=== PATIENT | male | born 1990 | race African-American/Black ===

== ENCOUNTER 2017-10-17 19:55 | Emergency (ER) | payer OTHER ==
[2017-10-17] MEDS ORDERED: traMADol HCl 50 MG TAB ONE (20:11)
== END 2017-10-17 20:22 | disposition home or self-care (01) ==
LOC: ERS 19:55
DX: M54.5 Low back pain (principal); W17.89XA Other fall from one level to another, initial encounter
CPT/HCPCS: 99283

== ENCOUNTER 2018-04-26 13:03 | Inpatient (IN) | payer OTHER ==
[~2018-04-26 13:03] MED LIST: ISOVUE-370 76%-LOCM 1 ML ONE
[2018-04-26 13:45] LABS: Hemoglobin 16.6 g/dL (14.0-18.0); Mean Corpuscular HGB CONC 34.1 g/dL (32.0-36.0); Mean Corpuscular Hemoglobin 28.3 pg (27.0-31.0); Mean Corpuscular Volume 83.1 fL (78.0-98.0); RBC Distribution Width 12.6 % (11.5-14.5); Red Blood Cell (RBC) Count 5.87 mill/uL (4.70-6.10); White Blood Cell (WBC) Count 9.4 thou/uL (4.8-10.8)
[2018-04-26 13:59] LABS: ALT (SGPT) 11 U/L (8-55); AST (SGOT) 16 U/L (5-34); Albumin 4.6 g/dL (3.5-5.0); Alkaline Phosphatase 50 U/L (40-150); Anion Gap 18 mmol/L (10-20); BUN (Urea Nitrogen) 13 mg/dL (8.9-20.6); Bilirubin, Total 2.1 mg/dL (0.2-1.2); Calc. Creatinine Clearance 0 mL/min (70-130); Calcium 9.3 mg/dL (7.8-10.44); Carbon Dioxide 19 mmol/L (22-29); Chloride 99 mmol/L (98-107); Estimated GFR-MDRD 64; Globulin 3.6 g/dL (2.4-3.5); Glucose 103 mg/dL (70-105); Potassium 4.6 mmol/L (3.5-5.1); Protein, Total 8.2 g/dL (6.0-8.3); Sodium 131 mmol/L (136-145)
[2018-04-26 13:59] LABS: Band 31 % (5-11); Large Platelets SLIGHT; Lymphocytes 20 % (21-51); MDiff Complete? YES; Mean Platelet Volume 13.1 fL (7.4-10.4); Metamyelocyte 2 % (0-0); Monocytes 10 % (0-10); Neutrophil 35 % (42-75); PLT Morphology Comment Appears Decreased; Platelet Count 64 thou/uL (130-400); RBC Morphology Normal; Reactive Lymphocytes 2 % (0-10); Vacuoles SLIGHT
[2018-04-26] MEDS ORDERED: Cefepime 2 GM in Sodium Chloride 0.9% 100 ML IVPB SCH (14:15)
[2018-04-26 15:03] LABS: Bilirubin Negative (Negative); Blood, Urine Negative (Negative); Clarity CLEAR (Clear); Glucose, Urine (Dipstick) Negative (Negative); Leukocyte Negative (Negative); Nitrite Negative (Negative); Protein, Urine (Dipstick) Trace mg/dL (Neg-Trace); Specific Gravity, Urine 1.021 (1.002-1.036); Urobilinogen 0.2 mg/dL (0.2-1.0); pH, Urine 5.5 (5.0-9.0)
[2018-04-26] MEDS ORDERED: metroNIDAZOLE 500 MG/100 ML BAG ONE (15:13)
[2018-04-26 17:05] VITALS: BMI 20.4
[2018-04-26] MEDS ORDERED: Sodium Chloride 0.9% 1,000 ML IV SCH (17:15)
[2018-04-26 17:36] LABS: Lactic Acid 1.7 mmol/L (0.5-2.2)
[2018-04-26] MEDS ORDERED: Ondansetron HCl/PF 4 MG/2 ML Vial IVP PRN (17:40)
[2018-04-26] MEDS ORDERED: Ondansetron ODT 4 MG TAB PO PRN (17:40)
[2018-04-26] MEDS ORDERED: Prevnar 13-Val Conj/PF 0.5 ML SYRINGE IM ONE (17:45)
[2018-04-26] MEDS ORDERED: Loperamide HCl 2 MG CAP PO PRN (17:49)
--- NOTE | 2018-04-26 18:06 | CT ---
CT ABDOMEN AND PELVIS WITH IV CONTRAST: 04/26/2018 HISTORY: Abdominal pain. Immunocompromised. Nausea, vomiting, and diarrhea, as well as fever. COMPARISON: 06/07/2015 FINDINGS: The lung bases are clear. The liver, spleen, pancreas, bilateral adrenal glands, left kidney, and ab dominal aorta demonstrate a normal CT appearance. A subcentimeter, [id number], hypodense lesion is seen in the mid portion of the right kidney. The urinary bladder is completely decompressed and not well evaluated on this exam. Lack of intraabdominal fat limits evaluation of the bowel, but there is a large number of fluid-fille d loops of small bowel. There is diffuse circumferential bowel wall thickening involving the colon, extending from the ascending colon to the rectum. Findings are worrisome for colitis. Pseudomembran ous colitis is a possibility. Multiple fluid-filled loops of bowel are seen within the pelvis, which would limit evaluation for abscess collection, but the findings are most likely related to multiple fluid-filled loops of bowel. No free intraperitoneal gas is seen. IMPRESSION: Diffuse circumferential wall thickening involving essentially the entire colon, related to colitis. Pseudomembranous colitis is a possibility. Clinical correlation is recommended. POS: [facility]
--- NOTE | 2018-04-26 18:06 | RAD ---
PORTABLE AP CHEST X-RAY: 04/26/2018 HISTORY: Fever, cough, and diarrhea. COMPARISON: 06/07/2015 FINDINGS: The cardiac silhouette and pulmonary vasculature are within normal limits. The lungs are clear. The osseous structures are intact. There has been no interval change from the prior study. IMPRESSION: No acute cardiopulmonary process. POS: [facility]
[2018-04-26] MEDS: Acetaminophen 500 MG TAB PO PRN (18:10)
[2018-04-26] MEDS: Sodium Chloride 0.9% 1,000 ML IV SCH (18:39)
[2018-04-26] MEDS: Famotidine 20 MG TAB PO SCH (20:19)
--- NOTE | 2018-04-26 21:49 | HP ---
DATE OF ADMISSION: 04/26/2018 PRIMARY CARE PROVIDER: Isabel sheets. CHIEF COMPLAINT: Abdominal pain and diarrhea. HISTORY OF PRESENT ILLNESS: This is a 28-year-old -Uz[place] male, who presents to [facility] Emergency Department complaining of abdominal pain for approximately 2-3 days with associate d diarrhea and nausea over the last 48 hours. The patient was attempting to wait out the symptoms wi th limiting his dietary intake without relief of symptoms. The patient states the abdominal pain was cramping, centrally located, and rated at 10/10. The patient admitted to fever; however, did not ta ke his temperature at home. The patient did not take any antidiarrheal medications or have any trave l history. The patient denies any recent exposure history or family or friends with similar symptoms . The patient denied any recent antibiotic exposure; however, he states his history is significant f or chronic HIV on chronic antiretrovirals and Bactrim DS prophylactically. In the emergency room, th e patient underwent general evaluation and was noted to meet sepsis criteria with elevated temperatur e, tachycardia, and elevated lactic acid level. The patient was placed on cefepime and Flagyl and gi martha intravenous normal saline x2 liters. PAST MEDICAL HISTORY: 1. Chronic human immunodeficiency viral infection with chronic antiretroviral therapy. 2. Chronic thrombocytopenia. PAST SURGICAL HISTORY: Reviewed and negative. CURRENT MEDICATIONS: 1. Bactrim DS 800/160 mg 1 tab p.o. Friday, Friday, and Friday. 2. Tivicay 50 mg 1 tab p.o. daily. 3. Prezcobix 800/150 mg 1 tab p.o. daily. ALLERGIES: No known drug allergies. FAMILY HISTORY: No inheritable diseases per patient report. SOCIAL HISTORY: The patient resides in [place], [place]. Smokes a pack of cigarettes daily. Alcohol us e weekly. No illicit drug use. Disabled. REVIEW OF SYSTEMS: The following complete review of systems was negative, unless otherwise mentioned in the HPI or below: Constitutional: Weight loss or gain, ability to conduct usual activities. Sk in: Rash, itching. Eyes: Double vision, pain. ENT/Mouth: Nose bleeding, neck stiffness, pain, te nderness. Cardiovascular: Palpitations, dyspnea on exertion, orthopnea. Respiratory: Shortness of breath, wheezing, cough, hemoptysis, fever or night sweats. Gastrointestinal: Poor appetite, abdom inal pain, heartburn, nausea, vomiting, constipation, or diarrhea. Genitourinary: Urgency, frequenc y, dysuria, nocturia. Musculoskeletal: Pain, swelling. Neurologic/Psychiatric: Anxiety, depressio n. Allergy/Immunologic: Skin rash, bleeding tendency. Otherwise negative except as stated per HPI. PHYSICAL EXAMINATION: VITAL SIGNS: Currently, blood pressure 124/62, pulse 103, respiratory rate is 20, temperature 100.7 degrees Fahrenheit, O2 saturation 93% on room air. GENERAL APPEARANCE: This is a 28-year-old -[place] male, alert and oriented x3, responsive, in no acute distress. HEENT: Pupils are equal, round, and reactive to light and accommodation. Extraocular muscles are in tact. No scleral icterus, no conjunctival injection. Nares patent. OP is clear. Teeth in fair rep air. NECK: Supple, no cervical adenopathy, no thyromegaly, no carotid bruits, no JVD appreciated. Cervic al spine with full active and passive range of motion. No meningeal signs appreciated. CHEST: Lungs are clear to auscultation bilaterally. CARDIOVASCULAR: S1, S2 with tachycardia. No murmur, rub or gallop appreciated. ABDOMEN: Rounded with tenderness to palpation diffusely. Bowel sounds hyperactive. No palpable mas s. No rebound or guarding noted. No CVA tenderness. EXTREMITIES: Warm and dry with fair turgor. No clubbing, cyanosis or asymmetric edema appreciated. Pulses palpable distally at the dorsalis pedis, posterior tibial, and popliteal arteries bilaterally . Capillary refill less than 2 seconds. NEUROLOGIC: Cranial nerves II-XII are grossly intact. No focal or lateralizing signs appreciated. PERTINENT LABORATORY AND X-RAY FINDINGS: Sodium 131, potassium 4.6, chloride 99, CO2 of 19, BUN 13, creatinine 1.57 with estimated GFR of 64, glucose 103, lactic acid level 2.6, calcium 9.3, total bili miller 2.1, AST 16, ALT 11, alkaline phosphatase 50, albumin 4.6. CBC showed a white blood cell count of 9.4, hemoglobin 17, hematocrit 49, platelet count 64,000 with 35% neutrophils, 31% bands. Urinal ysis negative. Stool Hemoccult positive x1 on 04/26/2018. Influenza A and B antigen dated [address] of the abdomen and pelvis dated 04/26/2018 shows diffuse colonic wall inflammatory pr ocess. Portable chest x-ray dated 04/26/2018 by my interpretation shows no acute cardiopulmonary pro cess. EKG dated 04/26/2018 by my interpretation shows sinus tachycardia with heart rates in the 120s . Attenuated R waves noted in the precordial leads. Right axis deviation. No acute ST-T wave bell es noted. ASSESSMENT AND PLAN: 1. Sepsis. Secondarily to acute colitis, likely bacterial etiology. We will continue general sepsi s protocol. Continue IV fluids with normal saline at 125 mL per hour. The patient received appropri ate normal saline boluses per protocol in the emergency room. Continue serial lactate trending. 2. Acute colitis, likely bacterial etiology. We will continue cefepime 2 grams IV q.12 hours with a dditional Flagyl 500 mg IV q.8 hours. Check stool for Clostridium difficile and Campylobacter/Shigel la species. Continue supportive management. Loperamide p.r.n. 3. Acute kidney injury. Suspect secondary to volume depletion. We will continue IV fluids as outli moose previously. Avoid nephrotoxic agents and contrast media. Repeat creatinine in the a.m. 4. Hyponatremia. Suspect secondary to dehydration and #1. We will continue with intravenous normal saline. Serial sodium monitoring. 5. Chronic thrombocytopenia. Continue to serial monitor with repeat CBC in the a.m. No evidence of acute or spontaneous blood loss. 6. Chronic human immunodeficiency viral infection. We will continue antiretroviral therapy once con firming home regimen. 7. Prophylaxis. Sequential compression devices while in bed. Pepcid 20 mg p.o. b.i.d. 8. Code status is FULL. Surrogate medical decision maker is Karmen Cook.
[2018-04-26] MEDS: metroNIDAZOLE 500 MG in Premix Bag 1 BAG IVPB SCH (22:26)
[2018-04-27] MEDS: Sodium Chloride 0.9% 1,000 ML IV SCH ×3 (01:38→13:24)
[2018-04-27] MEDS: Cefepime 2 GM in Sodium Chloride 0.9% 100 ML IVPB SCH ×2 (01:39→13:23)
[2018-04-27] MEDS: metroNIDAZOLE 500 MG in Premix Bag 1 BAG IVPB SCH ×3 (05:30→22:11)
[2018-04-27] MEDS: Saccharomyces boulardii 250 MG CAP PO SCH (07:50)
[2018-04-27] MEDS: Famotidine 20 MG TAB PO SCH ×2 (07:50→20:10)
[2018-04-27 08:52] LABS: Hemoglobin 14.1 g/dL (14.0-18.0); Mean Corpuscular HGB CONC 34.1 g/dL (32.0-36.0); Mean Corpuscular Hemoglobin 28.5 pg (27.0-31.0); Mean Corpuscular Volume 83.7 fL (78.0-98.0); Mean Platelet Volume 13.5 fL (7.4-10.4); Platelet Count 49 thou/uL (130-400); RBC Distribution Width 12.6 % (11.5-14.5); Red Blood Cell (RBC) Count 4.96 mill/uL (4.70-6.10); White Blood Cell (WBC) Count 9.6 thou/uL (4.8-10.8)
[2018-04-27 09:00] LABS: Anion Gap 9 mmol/L (10-20); BUN (Urea Nitrogen) 13 mg/dL (8.9-20.6); Calc. Creatinine Clearance 97 mL/min (70-130); Calcium 8.3 mg/dL (7.8-10.44); Carbon Dioxide 21 mmol/L (22-29); Chloride 107 mmol/L (98-107); Estimated GFR-MDRD Greater than 90; Glucose 105 mg/dL (70-105); Potassium 3.5 mmol/L (3.5-5.1); Sodium 133 mmol/L (136-145)
[2018-04-27 09:49] LABS: Band 25 % (5-11); Eosinophils 3 % (0-10); Lymphocytes 14 % (21-51); MDiff Complete? YES; Monocytes 8 % (0-10); Neutrophil 50 % (42-75); PLT Morphology Comment Appears Decreased
--- NOTE | 2018-04-27 11:50 | PDOC.PN ---
- Subjective Encounter Start Date: 04/27/18 Encounter Start Time: 11:45 Subjective: f/u for acute colitis on current Cefepime/Flagyl. Still with loose stools -: but no decrease in appetite. No fever or chills. Abd cramps but less today. - Objective Resuscitation Status: Resuscitation Status FULL:Full Resuscitation MAR Reviewed: Yes Vital Signs & Weight: Vital Signs (12 hours) Temp Pulse Resp BP Pulse Ox 04/27/18 07:39 98.4 F 91 18 102/72 94 L 04/27/18 04:00 98.5 F 93 18 130/88 95 04/27/18 00:00 98.5 F 81 16 108/63 96 Weight Weight 146 lb 6.191 oz I&O: 04/26/18 04/27/18 04/28/18 06:59 06:59 06:59 Intake Total 1850 Balance 1850 Result Diagrams: 04/27/18 08:15 04/27/18 08:15 Additional Labs: Accuchecks 04/26/18 20:22 POC Glucose 103 Microbiology 04/26/18 Unknown Stool - Pending Stool Occult Blood (DANYA) - Final 04/26/18 Unknown Stool - Pending Stool Lactoferrin - Final 04/26/18 Unknown Stool - Pending Campylobacter Antigen Assay - Final 04/26/18 Unknown Stool - Pending Shiga Toxin Test - Final 04/26/18 Unknown Stool - Pending C. difficile GDH Antigen & Toxins - Final 04/26/18 13:42 Nasal swab Influenza Types A,B Direct EIA - Final 04/26/18 Unknown Urine voided Urine Culture - Preliminary Beta-hemolytic Streptococcus 04/26/18 Unknown Stool - Pending Stool Culture - Preliminary 04/26/18 13:29 Venous blood - Left Arm Blood Culture - Preliminary Specimen has been received and culture in progress. No Growth to date. 04/26/18 13:28 Venous blood - Right Arm Blood Culture - Preliminary Specimen has been received and culture in progress. No Growth to date. Laboratory Tests 04/26/18 04/26/18 04/26/18 13:28 13:28 13:29 Plt Count 64 L Band Neuts % (Manual) 31 H Sodium 131 L Lactic Acid 2.6 H 04/26/18 04/27/18 17:11 08:15 Plt Count Band Neuts % (Manual) 25 H Sodium Lactic Acid 1.7 Phys Exam - Physical Examination Constitutional: NAD HEENT: PERRLA, sclera anicteric, oral pharynx no lesions Neck: no nodes, no JVD, supple, full ROM Respiratory: no wheezing, no rales, no rhonchi, clear to auscultation bilateral S1, S2 Cardiovascular: RRR, no significant murmur, no rub, gallop mild TTP diffusely Gastrointestinal: soft, no distention, positive bowel sounds Musculoskeletal: no edema, pulses present Neurological: non-focal, normal sensation, moves all 4 limbs Psychiatric: A&O x 3 Skin: no rash, normal turgor, cap refill <2 seconds Dx/Plan (1) Sepsis Code(s): A41.9 - SEPSIS, UNSPECIFIED ORGANISM Status: Acute Comment: Secondary to #2, improved with IV abx, IVF's (2) Acute colitis Code(s): K52.9 - NONINFECTIVE GASTROENTERITIS AND COLITIS, UNSPECIFIED Status : Acute Comment: Likely bacterial etiology, continue Cefepime/Flagyl, supportive mgmt, IVF's, Campylobacter antigen + (3) ANGY (acute kidney injury) Code(s): N17.9 - ACUTE KIDNEY FAILURE, UNSPECIFIED Status: Acute Comment: Improved with IVF's, avoid nephrotoxic meds and limit contrast exposure (4) Hyponatremia Code(s): E87.1 - HYPO-OSMOLALITY AND HYPONATREMIA Status: Acute Comment: Improved, continue IVF, serial Na+ (5) Human immunodeficiency virus (HIV) infection Status: Chronic Comment: Resume home antiretroviral regimen - Plan continue antibiotics, social service assistant, out of bed/ambulate, DVT proph w/SCDs Stable overall -: Continue IVF's another 24h -: Continue Cefepime/Flagyl -: Decrease IVF's 100ml/h -: Resume home antiretroviral therapy * AM lab: BMP, CBC
[2018-04-27] MEDS: Acetaminophen 500 MG TAB PO PRN (12:02)
[2018-04-28] MEDS: Sodium Chloride 0.9% 1,000 ML IV SCH ×2 (01:56→08:26)
[2018-04-28] MEDS: Cefepime 2 GM in Sodium Chloride 0.9% 100 ML IVPB SCH ×2 (01:57→13:22)
[2018-04-28] MEDS: metroNIDAZOLE 500 MG in Premix Bag 1 BAG IVPB SCH ×2 (05:14→13:22)
[2018-04-28 07:50] LABS: Mean Corpuscular HGB CONC 33.4 g/dL (32.0-36.0); Mean Corpuscular Hemoglobin 28.3 pg (27.0-31.0); Mean Corpuscular Volume 84.5 fL (78.0-98.0); Platelet Count 48 thou/uL (130-400); RBC Distribution Width 12.8 % (11.5-14.5); Red Blood Cell (RBC) Count 4.61 mill/uL (4.70-6.10); White Blood Cell (WBC) Count 8.7 thou/uL (4.8-10.8)
[2018-04-28 08:00] LABS: Anion Gap 8 mmol/L (10-20); BUN (Urea Nitrogen) 9 mg/dL (8.9-20.6); Calc. Creatinine Clearance 98 mL/min (70-130); Calcium 8.5 mg/dL (7.8-10.44); Carbon Dioxide 24 mmol/L (22-29); Chloride 111 mmol/L (98-107); Estimated GFR-MDRD Greater than 90; Glucose 97 mg/dL (70-105); Sodium 139 mmol/L (136-145)
[2018-04-28 08:04] VITALS: BP 113/71; TEMP 98.2
[2018-04-28 08:18] LABS: Band 15 % (5-11); Eosinophils 12 % (0-10); Lymphocytes 13 % (21-51); MDiff Complete? YES; Monocytes 3 % (0-10); Neutrophil 52 % (42-75); PLT Morphology Comment Appears Decreased; RBC Morphology Normal; Reactive Lymphocytes 5 % (0-10)
[2018-04-28] MEDS: Saccharomyces boulardii 250 MG CAP PO SCH (08:27)
[2018-04-28] MEDS: Famotidine 20 MG TAB PO SCH (08:27)
[2018-04-28] MEDS ORDERED: COBICISTAT PO SCH (09:00)
[2018-04-28] MEDS ORDERED: DARUNAVIR PO SCH (09:00)
[2018-04-28] MEDS ORDERED: TIVICAY 50 MG PO SCH (09:00)
[2018-04-28] MEDS ORDERED: Non-Formulary Item 1 EACH (Dolutegravir Sodium [Tivicay] 50 MG) PO SCH (09:00)
[2018-04-28] MEDS ORDERED: [UNRECOGNIZED DRUG - OTHER] PO SCH (09:00)
--- NOTE | 2018-04-28 15:13 | PDOC.PN ---
- Subjective Encounter Start Date: 04/28/18 Encounter Start Time: 14:35 Subjective: f/u for colitis on Cefepime/Flagyl. Less diarrhea and more formed stool. -: Appetite good. No fever. Stool cx showing Shigella spp. - Objective Resuscitation Status: Resuscitation Status FULL:Full Resuscitation MAR Reviewed: Yes Vital Signs & Weight: Vital Signs (12 hours) Temp Pulse Resp BP Pulse Ox 04/28/18 08:29 94 L 04/28/18 08:01 98.2 F 91 18 113/71 94 L Weight Admit Weight 146 lb Weight 146 lb 6.191 oz I&O: 04/27/18 04/28/18 04/29/18 06:59 06:59 06:59 Intake Total 1849 1849 Balance 1849 1849 Result Diagrams: 04/28/18 07:32 04/28/18 07:32 Additional Labs: Microbiology 04/26/18 Unknown Stool - Pending Stool Occult Blood (DAYNA) - Final 04/26/18 Unknown Stool - Pending Stool Lactoferrin - Final 04/26/18 Unknown Stool - Pending Campylobacter Antigen Assay - Final 04/26/18 Unknown Stool - Pending Shiga Toxin Test - Final 04/26/18 Unknown Stool - Pending C. difficile GDH Antigen & Toxins - Final 04/26/18 13:42 Nasal swab Influenza Types A,B Direct EIA - Final 04/26/18 Unknown Urine voided Urine Culture - Preliminary Beta-hemolytic Streptococcus 04/26/18 Unknown Stool - Pending Stool Culture - Preliminary Shigella sonnei 04/26/18 Unknown Stool - Pending Stool Culture - Preliminary 04/26/18 13:29 Venous blood - Left Arm Blood Culture - Preliminary Specimen has been received and culture in progress. No Growth to date. 04/26/18 13:28 Venous blood - Right Arm Blood Culture - Preliminary Specimen has been received and culture in progress. No Growth to date. Laboratory Tests 04/26/18 04/26/18 04/26/18 13:28 13:28 13:29 Plt Count 64 L Band Neuts % (Manual) 31 H Sodium 131 L Lactic Acid 2.6 H 04/26/18 04/27/18 17:11 08:15 Plt Count Band Neuts % (Manual) 25 H Sodium Lactic Acid 1.7 Phys Exam - Physical Examination Constitutional: NAD HEENT: PERRLA, sclera anicteric, oral pharynx no lesions Neck: no nodes, no JVD, supple, full ROM Respiratory: no wheezing, no rales, no rhonchi, clear to auscultation bilateral S1, S2 Cardiovascular: RRR, no significant murmur, no rub, gallop Gastrointestinal: soft, non-tender, no distention, positive bowel sounds Musculoskeletal: no edema, pulses present Neurological: non-focal, normal sensation, moves all 4 limbs Psychiatric: normal affect, A&O x 3 Skin: no rash, normal turgor, cap refill <2 seconds Dx/Plan (1) Sepsis Code(s): A41.9 - SEPSIS, UNSPECIFIED ORGANISM Status: Acute Comment: Secondary to #2, improved with IV abx, IVF's, resolving (2) Acute colitis Code(s): K52.9 - NONINFECTIVE GASTROENTERITIS AND COLITIS, UNSPECIFIED Status : Acute Comment: Likely bacterial etiology due to Shigella, continue Cefepime/ Flagyl, supportive mgmt, IVF's, Campylobacter antigen + but doubt this is true pathogen (3) ANGY (acute kidney injury) Code(s): N17.9 - ACUTE KIDNEY FAILURE, UNSPECIFIED Status: Acute Comment: Improved with IVF's, avoid nephrotoxic meds and limit contrast exposure (4) Hyponatremia Code(s): E87.1 - HYPO-OSMOLALITY AND HYPONATREMIA Status: Acute Comment: Improved, continue IVF, serial Na+ (5) Human immunodeficiency virus (HIV) infection Status: Chronic Comment: Resume home antiretroviral regimen - Plan plan discussed w/ family, continue antibiotics, web content & social media manager, out of bed/ ambulate Stable overall -: Continue current Cefepime/Flagyl another 24h -: Saline lock IVF's -: OOB/ambulate -: Home in 24h * .
--- NOTE | 2018-04-29 01:29 | DIS ---
DATE OF ADMISSION: 04/26/2018 DATE OF DISCHARGE: 04/28/2018 DISCHARGE DIAGNOSES: 1. Sepsis secondary to #2, improved. 2. Acute colitis, likely secondary to Shigella species. 3. Acute kidney injury, resolved. 4. Hyponatremia. 5. Human immunodeficiency viral infection with chronic antiretroviral therapy. 6. Left against medical advice. CONSULTATIONS: None. PERTINENT LABORATORY AND X-RAY FINDINGS: Sodium ranged between 131-139, creatinine ranged between 1. 05-1.57, estimated GFR ranged between 64 to greater than 90. Lactic acid level ranged between 1.7 to 2.6. CBC showed a white blood cell count ranged between 8.7-9.6, hemoglobin ranged between 13-16.6, platelet count ranged between 48-64,000. Urinalysis negative. Blood cultures x2 dated on 8 showed no growth at 48 hours. Influenza A and B antigen dated on 04/26/2018 negative. Stool cultu re dated on 04/26/2018 showed Shigella sonnei, susceptibilities pending. Campylobacter antigen posit kendrick on 04/26/2018. Stool lactoferrin positive on 04/26/2018. Stool Hemoccult dated on 04/26/2018, p ositive x1. Urine culture dated on 04/26/2018 showed 25-50,000 colonies of beta-hemolytic streptococ cus. Portable chest x-ray dated on 04/26/2018 showed no acute cardiopulmonary process. CT of the ab domen and pelvis dated on 04/26/2018 showed diffuse circumferential wall thickening involving the ent kingston colon. HOSPITAL COURSE: The patient was admitted to the medical floor after initially presenting with abdom inal pain and diarrhea. The patient underwent extensive evaluation including administration of IV fl uids. The patient was placed on IV cefepime and Flagyl and treated for sepsis syndrome secondary to acute colitis. Stool cultures showed evidence of Shigella species and Campylobacter antigen positive . The patient did clinically improve with supportive management, tolerating regular oral intake, and decreasing IV fluid requirements. The patient was noted with mild acute kidney injury, improved wit h IV fluid hydration. The patient was clinically improving and slated for discharge on 04/29/2018; h owever, left against medical advice on 04/28/2018.
[2018-04-29] MEDS ORDERED: Sulfameth/Trimethoprim DS 800-160mg TAB PO SCH (09:00)
--- NOTE | 2018-04-29 11:59 | PQF ---
JATIN GARCIARANDY DO [id number] CLINICAL DOCUMENTATION CLARIFICATION FORM: POST DISCHARGE Addendum to original discharge summary date: ____ Late entry note date: __ DATE: ATTN: Please exercise your independent, professional judgment in responding to the clarification form. Clinical indicators are provided on the bottom of this form for your review Please check appropriate box(s): [ ] AIDS /HIV Disease Please specify associated HIV Disease condition(s) if appropriate: [ ] Sepsis [ ] Kaposis sarcoma [ ] TB [ ] Pneumonia (please specify type) [ ] Herpes [ ] Oral Thrush [ ] Wasting syndrome [ ] CMV [ ] Encephalopathy [ ] Meningitis [ ] Lymphoma [ ] Malnutrition; mild, moderate, severe [ ] Disseminated mycobacterial infection [ x ] Asymptomatic HIV infection status [ ] Non-specific serologic evidence of HIV [ ] Other diagnosis [ ] Unable to determine In addition, please specify: Present on Admission (POA): [ x ] Yes [ ] No [ ] Unable to determine For continuity of documentation, please document condition throughout progress notes and discharge summary. Thank You. CLINICAL INDICATORS - SIGNS / SYMPTOMS / LABS Decreased T cell count Fever RISK FACTORS History of HIV Disease/AIDS TREATMENTS: HAART/drug regimen MTDD
== END 2018-04-28 16:56 | disposition left against medical advice (07) | DRG 872 ==
LOC: ERS 13:03 → T4-B 15:37
PROVIDERS: ADMIT Family Medicine; ATTEND Family Medicine
DX: A41.9 Sepsis, unspecified organism (principal); N17.9 Acute kidney failure, unspecified; E87.1 Hypo-osmolality and hyponatremia; A03.9 Shigellosis, unspecified; E86.0 Dehydration; Z21 Asymptomatic human immunodeficiency virus [HIV] infection status; F17.210 Nicotine dependence, cigarettes, uncomplicated; D69.6 Thrombocytopenia, unspecified; Z79.899 Other long term (current) drug therapy; Z79.2 Long term (current) use of antibiotics
CPT/HCPCS: 36415; 36416; 71045; 74177; 80048; 80053; 81003; 82274; 83605; 83630; 85007; 85025; 85027; 87040; 87045; 87046; 87077; 87086; 87186; 87324; 87449; 87804; 87899; 93005; 96361; 96365; 96367; A4216; J0692; J7050

== ENCOUNTER 2018-07-10 21:59 | Emergency (ER) | payer OTHER ==
[2018-07-10] MEDS ORDERED: Acetaminophen 500 MG TAB ONE (22:31)
== END 2018-07-10 22:38 | disposition home or self-care (01) ==
LOC: ERS 21:59
DX: K04.7 Periapical abscess without sinus (principal); K02.9 Dental caries, unspecified; B20 Human immunodeficiency virus [HIV] disease; F17.210 Nicotine dependence, cigarettes, uncomplicated
CPT/HCPCS: 99282

== ENCOUNTER 2018-11-16 12:38 | Emergency (ER) | payer OTHER ==
--- NOTE | 2018-11-16 13:34 | RAD ---
RIGHT KNEE 4 VIEWS: Date: 11/16/18 HISTORY: Knee pain after fall. FINDINGS: Suggestion of some slight medial compartment narrowing on this examination. No signs of fracture or j oint effusion. IMPRESSION: No evidence of fracture. POS: [facility]
== END 2018-11-16 14:00 | disposition home or self-care (01) ==
LOC: ERS 12:38
DX: S83.91XA Sprain of unspecified site of right knee, initial encounter (principal); F17.210 Nicotine dependence, cigarettes, uncomplicated; W19.XXXA Unspecified fall, initial encounter

== ENCOUNTER 2019-01-18 22:30 | Emergency (ER) | payer OTHER ==
[2019-01-18 23:55] LABS: #Eosinphils 0.6 thou/uL (0.0-0.7); #Lymphocytes 1.3 thou/uL (1.20-3.40); #Monocytes 0.5 thou/uL (0.11-0.59); %Basophils 0.2 % (0.0-1.0); %Eosinophils 7.7 % (0.0-10.0); %Lymphocytes 15.2 % (21.0-51.0); Hemoglobin 15.2 g/dL (14.0-18.0); Mean Corpuscular HGB CONC 34.3 g/dL (32.0-36.0); Mean Corpuscular Hemoglobin 28.3 pg (27.0-31.0); Mean Corpuscular Volume 82.4 fL (78.0-98.0); Mean Platelet Volume 12.9 fL (7.4-10.4); Platelet Count 26 thou/uL (130-400); RBC Distribution Width 11.6 % (11.5-14.5); Red Blood Cell (RBC) Count 5.39 mill/uL (4.70-6.10); Reflex for Review?? YES; White Blood Cell (WBC) Count 8.4 thou/uL (4.8-10.8)
[2019-01-19 00:09] LABS: ALT (SGPT) 11 U/L (8-55); AST (SGOT) 13 U/L (5-34); Albumin 4.6 g/dL (3.5-5.0); Alkaline Phosphatase 49 U/L (40-150); Anion Gap 14 mmol/L (10-20); BUN (Urea Nitrogen) 16 mg/dL (8.9-20.6); Bilirubin, Total 0.4 mg/dL (0.2-1.2); Calc. Creatinine Clearance 0 mL/min (70-130); Calcium 9.6 mg/dL (7.8-10.44); Carbon Dioxide 26 mmol/L (22-29); Chloride 100 mmol/L (98-107); Estimated GFR-MDRD 90; Globulin 3.6 g/dL (2.4-3.5); Glucose 94 mg/dL (70-105); Potassium 3.9 mmol/L (3.5-5.1); Protein, Total 8.2 g/dL (6.0-8.3); Sodium 136 mmol/L (136-145)
== END 2019-01-19 00:20 | disposition left against medical advice (07) ==
LOC: ERS 22:30
DX: L02.01 Cutaneous abscess of face (principal); F17.210 Nicotine dependence, cigarettes, uncomplicated
CPT/HCPCS: 80053; 85025; 85060; 87070; 87077; 87186; 87205

== ENCOUNTER 2019-01-29 11:37 | Emergency (ER) | payer OTHER ==
[~2019-01-29 11:37] MED LIST changes: +Iopamidol 370 76% 50 ML VIAL FS ONE
[2019-01-29 12:15] LABS: #Eosinphils 0.4 thou/uL (0.0-0.7); #Lymphocytes 0.8 thou/uL (1.20-3.40); #Monocytes 0.4 thou/uL (0.11-0.59); #Neutrophils 5.7 thou/uL (1.40-6.50); %Basophils 0.1 % (0.0-1.0); %Eosinophils 5.8 % (0.0-10.0); %Lymphocytes 10.9 % (21.0-51.0); %Monocytes 5.1 % (0.0-10.0); Hemoglobin 15.2 g/dL (14.0-18.0); Mean Corpuscular HGB CONC 33.9 g/dL (32.0-36.0); Mean Corpuscular Hemoglobin 27.5 pg (27.0-31.0); Mean Corpuscular Volume 81.1 fL (78.0-98.0); RBC Distribution Width 11.7 % (11.5-14.5); Red Blood Cell (RBC) Count 5.52 mill/uL (4.70-6.10); White Blood Cell (WBC) Count 7.4 thou/uL (4.8-10.8)
[2019-01-29 12:23] LABS: Large Platelets SLIGHT; MDiff Complete? YES; Mean Platelet Volume 12.5 fL (7.4-10.4); Platelet Count 54 thou/uL (130-400); Platelet Morphology Comment Appears Decreased; RBC Morphology Normal
[2019-01-29 12:34] LABS: ALT (SGPT) 9 U/L (8-55); AST (SGOT) 12 U/L (5-34); Albumin 4.7 g/dL (3.5-5.0); Alkaline Phosphatase 52 U/L (40-150); Anion Gap 14 mmol/L (10-20); BUN (Urea Nitrogen) 13 mg/dL (8.9-20.6); Bilirubin, Total 0.8 mg/dL (0.2-1.2); CK (CPK) 86 U/L (30-200); Calc. Creatinine Clearance 0 mL/min (70-130); Calcium 9.5 mg/dL (7.8-10.44); Carbon Dioxide 26 mmol/L (22-29); Chloride 102 mmol/L (98-107); Estimated GFR-MDRD 74; Globulin 3.1 g/dL (2.4-3.5); Glucose 121 mg/dL (70-105); Lipase 16 U/L (8-78); Potassium 3.9 mmol/L (3.5-5.1); Protein, Total 7.8 g/dL (6.0-8.3); Sodium 138 mmol/L (136-145)
--- NOTE | 2019-01-29 12:41 | RAD ---
Chest 2 views HISTORY: Chest pain. COMPARISON: 07/05/2012. FINDINGS: Cardiac silhouette and pulmonary vasculature are unremarkable. Mediastinum is midline. No c onfluent airspace consolidation, pneumothorax, or pleural fluid. IMPRESSION: No active cardiopulmonary abnormalities are demonstrated.
[2019-01-29] MEDS ORDERED: Piperacillin/Tazobactam 4.5 GM VIAL ONE (13:09)
[2019-01-29] MEDS ORDERED: Morphine 4 MG/ML VIAL ONE (13:09)
[2019-01-29] MEDS ORDERED: Ondansetron PF 4 MG/2 ML Vial ONE (13:09)
--- NOTE | 2019-01-29 14:38 | CT ---
ABDOMEN CT WITH CONTRAST PELVIC CT WITH CONTRAST: HISTORY: Chest pain. Sharp abdominal pain. Nausea. Vomiting and diarrhea. COMPARISON: 04/26/2018, 06/07/2015. FINDINGS: ABDOMEN CT: Lung bases are clear. Heart size is within normal limits. No significant pericardial fluid. Visual ized aorta has a normal caliber. No periaortic fat stranding. Gallbladder is unremarkable. Portal vein is patent. Liver, spleen, pancreas, and adrenal glands have appropriate attenuation and enhancement. No gastrohepatic, retrocrural, or periportal lymphadenopathy. Symmetric enhancement of the kidneys. Bilaterally, no obstructive uropathy. A 4 mm hypodensity in t he right renal cortex, too small to further characterize. Decreased visceral fat limits evaluation for inflammatory change. No mesenteric mass, lymphadenopath y, free air, or free fluid. Gastric mucosa, duodenum, and multiple contrast-filled normal-caliber small bowel loops are identifie d. Ileocecal junction is difficult to assess given the lack of complete oral contrast opacification. There are some decompressed contrast-filled loops of small bowel with bowel wall thickening that is nonspecific. These changes involve multiple loops of ileum. Appendix is not appreciated. No infla mmation of the cecal apex. Scattered fecal material in a nondistended, nondilated colon. No mesenteric mass, lymphadenopathy, free air, or free fluid. CT PELVIS: The urinary bladder is unremarkable. No mass, lymphadenopathy, free air, or free fluid. No lytic or blastic lesions within the osseous structures. IMPRESSION: No evidence of bowel obstruction. No obvious inflammatory change at the cecal apex to suggest append icitis. There are multiple contrast-filled loops of small bowel with bowel wall thickening. Finding s may be due to inadequate distention. However, the possibility of enteritis cannot be excluded. Co rrelate clinically. POS: [facility]
[2019-01-29] MEDS ORDERED: Morphine 2 MG/ML SYRINGE ONE (14:51)
== END 2019-01-29 15:38 | disposition home or self-care (01) ==
LOC: ERS 11:37
DX: R10.9 Unspecified abdominal pain (principal); R19.7 Diarrhea, unspecified; R07.9 Chest pain, unspecified; F32.9 Major depressive disorder, single episode, unspecified; F17.210 Nicotine dependence, cigarettes, uncomplicated; Z79.899 Other long term (current) drug therapy
CPT/HCPCS: 36415; 71046; 74177; 80053; 82550; 83605; 83615; 83690; 84484; 85025; 87040; 93005; 96365; 96367; 96375; 96376; J2270; J2405; J2543; J3370

== ENCOUNTER 2019-04-19 04:46 | Emergency (ER) | payer OTHER | END 2019-04-19 05:40 | disposition home or self-care (01) | LOC: ERS 04:46 | DX: B07.9 Viral wart, unspecified (principal); B20 Human immunodeficiency virus [HIV] disease; F17.210 Nicotine dependence, cigarettes, uncomplicated | CPT/HCPCS: 99283 ==

== ENCOUNTER 2019-07-08 16:43 | Emergency (ER) | payer OTHER ==
[2019-07-08 18:42] LABS: Hemoglobin 14.7 g/dL (14.0-18.0); Mean Corpuscular HGB CONC 33.9 g/dL (32.0-36.0); Mean Corpuscular Hemoglobin 28.2 pg (27.0-31.0); Mean Corpuscular Volume 83.2 fL (78.0-98.0); RBC Distribution Width 11.8 % (11.5-14.5); White Blood Cell (WBC) Count 7.5 thou/uL (4.8-10.8)
[2019-07-08 18:43] LABS: #Basophils 0.1 thou/uL (0.0-0.2); #Eosinphils 1.4 thou/uL (0.0-0.7); #Lymphocytes 1.5 thou/uL (1.20-3.40); #Neutrophils 3.5 thou/uL (1.40-6.50); %Basophils 0.7 % (0.0-1.0); %Eosinophils 18.9 % (0.0-10.0); %Monocytes 13.4 % (0.0-10.0)
[2019-07-08 18:49] LABS: Bilirubin Negative (Negative); Blood, Urine Negative (Negative); Clarity Clear (Clear); Glucose, Urine (Dipstick) Normal (Negative); Leukocyte Negative Leu/uL (Negative); Nitrite Negative (Negative); Protein, Urine (Dipstick) Negative (Neg-Trace); Urobilinogen Normal mg/dL (Less than 2)
[2019-07-08 18:55] LABS: ALT (SGPT) 13 U/L (8-55); AST (SGOT) 16 U/L (5-34); Albumin 4.2 g/dL (3.5-5.0); Alkaline Phosphatase 60 U/L (40-110); Anion Gap 9 mmol/L (10-20); BUN (Urea Nitrogen) 11 mg/dL (8.9-20.6); Bilirubin, Total 0.3 mg/dL (0.2-1.2); Calc. Creatinine Clearance 0 mL/min (70-130); Calcium 9.4 mg/dL (7.8-10.44); Carbon Dioxide 30 mmol/L (22-29); Chloride 108 mmol/L (98-107); Estimated GFR-MDRD 90; Globulin 3.3 g/dL (2.4-3.5); Potassium 3.9 mmol/L (3.5-5.1); Protein, Total 7.5 g/dL (6.0-8.3); Sodium 143 mmol/L (136-145)
[2019-07-08 18:58] LABS: Glucose 59 mg/dL (70-105)
[2019-07-08 19:07] LABS: Large Platelets SLIGHT; MDiff Complete? YES; Mean Platelet Volume 13.6 fL (7.4-10.4); Platelet Count 34 thou/uL (130-400); Platelet Morphology Comment Appears Decreased; Target Cells SLIGHT = 2-5 cells (100X) (0-1/hpf)
--- NOTE | 2019-07-08 21:33 | RAD ---
EXAM: Chest PA and lateral: HISTORY: Cough COMPARISON: 01/29/2019 FINDINGS: Heart: Normal cardiac silhouette Aorta: Unremarkable Pulmonary vessels: Normal Costophrenic angles: Costophrenic angles are clear. Lungs: No consolidation or masses. Pneumothorax: No pneumothorax Osseous structures: No osseous abnormalities IMPRESSION: No acute cardiopulmonary process.
--- NOTE | 2019-07-08 21:49 | CT ---
EXAM: CT ABDOMEN AND PELVIS HISTORY: Pain COMPARISON: 01/29/2019 Procedure: Multiple contiguous axial images were obtained and a CT of the abdomen and pelvis with IV contrast. C oronal reformats were performed. FINDINGS: Lower Chest: within normal limits. Vessels: Normal caliber aorta Heart: Normal heart size Abdomen: Portal vein:Patent Gallbladder: Contracted due to nonfasting state. Liver: within normal limits. Pancreas: within normal limits. Spleen: within normal limits. Adrenals: within normal limits. Kidneys: Symmetric enhancement. No obstructive uropathy. Peritoneum: Limited evaluation due to decreased visceral fat. No definite mass, nephropathy, free air or free fluid. Bowel: Limited evaluation due to the lack of oral contrast administration. Moderately distended stoma ch with ingested material. No obvious small bowel obstruction. Limited evaluation of the ileocecal junction. Scattered fecal material in a nondistended, nondilated colon. Appendix is difficult to appr eciate. No obvious inflammation in the right lower quadrant. Mesentery and Retroperitoneum: No enlarged mesenteric or retroperitoneal lymph nodes. Abdominal Wall: within normal limits. Pelvis: Reproductive Organs: Reproductive organs are unremarkable. Pelvis: No mass, lymphadenopathy, free air or free fluid. Bladder: within normal limits. Bones: within normal limits. IMPRESSION: No evidence of acute intraabdominal\pelvic abnormality. Nonspecific distention of the stomach with in gested material. Correlate clinically.
[2019-07-08] MEDS ORDERED: Bicillin LA 2.4 MILL.UNITS/4 ML SYRINGE ONE (22:20)
[2019-07-09 01:16] LABS: Syphilis Antibody Index 9.54 S/CO (<1.00 Non-Reactive)
[2019-07-09 05:47] LABS: Syphilis Antibody INDETERMINATE (Nonreactive)
== END 2019-07-08 22:32 | disposition home or self-care (01) ==
LOC: ERS 16:43
DX: A51.49 Other secondary syphilitic conditions (principal); B20 Human immunodeficiency virus [HIV] disease; R21 Rash and other nonspecific skin eruption; F32.9 Major depressive disorder, single episode, unspecified; F17.210 Nicotine dependence, cigarettes, uncomplicated
CPT/HCPCS: 36415; 71046; 74177; 80053; 81003; 85025; 86593; 86780; 87081; 87430; 87804; J0561

== ENCOUNTER 2019-10-12 09:36 | Emergency (ER) | payer OTHER ==
[2019-10-12 11:15] LABS: HBSAg Index 0.17 S/CO (0-0.99); Hep B Surf Ag Non-Reactive S/CO (NonReactive); Hep C IgG Ab Non-Reactive (NonReactive); Hep C Index 0.13 S/CO (0-0.79)
[2019-10-12 12:16] LABS: HIV (1/2) Antibody/Antigen Reflxed Confirmation (NonReactive)
[2019-10-12 12:18] LABS: HIV 1/2 INDEX 1010.67 S/CO (<1.00)
[2019-10-13 11:39] LABS: HIV 1 Antibody Multi-Spot Positive (Negative); HIV 2 Antibody Multi-Spot Negative (Negative); HIV Multi-spot Interp HIV-1 Positive (.)
== END 2019-10-12 10:17 | disposition home or self-care (01) ==
LOC: ERS 09:36
DX: S40.819A Abrasion of unspecified upper arm, initial encounter (principal); S80.819A Abrasion, unspecified lower leg, initial encounter; B20 Human immunodeficiency virus [HIV] disease; F32.9 Major depressive disorder, single episode, unspecified; F17.210 Nicotine dependence, cigarettes, uncomplicated; X58.XXXA Exposure to other specified factors, initial encounter; Y93.02 Activity, running
CPT/HCPCS: 36415; 86701; 86702; 86803; 87340; 87389; 99283

== ENCOUNTER 2020-01-16 12:12 | Emergency (ER) | payer OTHER ==
[2020-01-16] MEDS ORDERED: Ibuprofen 200 MG TAB ONE (14:05)
--- NOTE | 2020-01-16 14:25 | RAD ---
Exam:Right foot 2 views HISTORY: Stubbed toe. Pain. COMPARISON: None FINDINGS: Lisfranc alignment is maintained. Preserved joint spaces. No fracture. IMPRESSION: No fracture.
== END 2020-01-16 15:33 | disposition home or self-care (01) ==
LOC: ERS 12:12
DX: S91.201A Unspecified open wound of right great toe with damage to nail, initial encounter (principal); B20 Human immunodeficiency virus [HIV] disease; F17.210 Nicotine dependence, cigarettes, uncomplicated; F32.9 Major depressive disorder, single episode, unspecified; W22.8XXA Striking against or struck by other objects, initial encounter

== ENCOUNTER 2020-05-07 22:29 | Emergency (ER) | payer OTHER ==
[2020-05-08] MEDS ORDERED: Lidocaine 1% (PF) 30 ML VIAL ONE (00:21)
[2020-05-08] MEDS ORDERED: Lidocaine Viscous Sol 2% 15 ml UD Cup ONE (00:34)
[2020-05-08] MEDS ORDERED: Acetaminophen 500 MG TAB ONE (01:38)
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
== END 2020-05-08 02:10 ==
LOC: ERS 22:29 → EEVIPCON 22:29 → ERS 05-08 02:10
DX: S01.531A Puncture wound without foreign body of lip, initial encounter (principal); S01.81XA Laceration without foreign body of other part of head, initial encounter; Z21 Asymptomatic human immunodeficiency virus [HIV] infection status; F32.9 Major depressive disorder, single episode, unspecified; F17.210 Nicotine dependence, cigarettes, uncomplicated; Y04.8XXA Assault by other bodily force, initial encounter
CPT/HCPCS: 70450; 70486; 71045; 72125; J2001

== ENCOUNTER 2021-02-19 21:16 | Emergency (ER) | payer OTHER | END 2021-02-20 00:34 | disposition home or self-care (01) | LOC: ERS 21:16 | DX: B37.81 Candidal esophagitis (principal); B20 Human immunodeficiency virus [HIV] disease; F17.210 Nicotine dependence, cigarettes, uncomplicated | CPT/HCPCS: 36415; 71045; 80053; 81003; 81015; 83605; 84484; 85025; 87040; 87086; 93005 ==

== ENCOUNTER 2021-05-14 14:44 | Inpatient (IN) | payer OTHER ==
[2021-05-14] MEDS ORDERED: Vancomycin 1 GM/200 ML BAG ONE (15:32)
[2021-05-14] MEDS ORDERED: Morphine 4 MG/ML VIAL ONE (15:33)
[2021-05-14] MEDS ORDERED: Midazolam HCl 2 mg/2 ml Vial ONE (15:33)
[2021-05-14] MEDS ORDERED: Acetaminophen 500 MG TAB ONE (15:33)
[2021-05-14 15:49] LABS: #Basophils 0.1 thou/uL (0.0-0.2); #Eosinphils 0.1 thou/uL (0.0-0.7); #Lymphocytes 1.5 thou/uL (1.20-3.40); #Monocytes 0.3 thou/uL (0.11-0.59); #Neutrophils 8.3 thou/uL (1.40-6.50); %Basophils 0.6 % (0.0-1.0); %Eosinophils 1.2 % (0.0-10.0); %Lymphocytes 14.5 % (21.0-51.0); %Monocytes 3.1 % (0.0-10.0); %Neutrophils 80.6 % (42.0-75.0); Hemoglobin 10.9 g/dL (14.0-18.0); Mean Corpuscular HGB CONC 34.4 g/dL (32.0-36.0); Mean Corpuscular Hemoglobin 25.8 pg (27.0-31.0); Mean Platelet Volume 11.5 fL (7.4-10.4); Platelet Count 193 thou/uL (130-400); RBC Distribution Width 13.7 % (11.5-14.5); Red Blood Cell (RBC) Count 4.22 mill/uL (4.70-6.10); White Blood Cell (WBC) Count 10.3 thou/uL (4.8-10.8)
[2021-05-14 15:57] LABS: ALT (SGPT) 10 U/L (8-55); AST (SGOT) 11 U/L (5-34); Albumin 3.8 g/dL (3.5-5.0); Alkaline Phosphatase 60 U/L (40-110); Anion Gap 12 mmol/L (10-20); BUN (Urea Nitrogen) 10 mg/dL (8.9-20.6); Bilirubin, Total 1.2 mg/dL (0.2-1.2); Calc. Creatinine Clearance 0 mL/min (70-130); Calcium 8.9 mg/dL (7.8-10.44); Carbon Dioxide 25 mmol/L (22-29); Chloride 104 mmol/L (98-107); Globulin 3.5 g/dL (2.4-3.5); Glucose 110 mg/dL (70-105); Potassium 3.6 mmol/L (3.5-5.1); Protein, Total 7.3 g/dL (6.0-8.3); Sodium 137 mmol/L (136-145)
[2021-05-14] MEDS ORDERED: Cefepime 2 GM VIAL ONE (16:01)
[2021-05-14] MEDS ORDERED: Lidocaine 1% w/Epinephrine 1:100K 20 ML VIAL ONE (16:01)
[2021-05-14 16:10] LABS: Large Platelets SLIGHT; MDiff Complete? YES; Microcytosis SLIGHT = 6-15 cells (100X) (0-5/hpf); Platelet Morphology Comment Appears Adequate; Target Cells SLIGHT = 2-5 cells (100X) (0-1/hpf)
[2021-05-14 18:10] LABS: Bilirubin Negative (Negative); Blood, Urine Negative (Negative); Clarity Clear (Clear); Glucose, Urine (Dipstick) Normal (Negative); Ketone, Urine Negative (Negative); Leukocyte 250 Leu/uL (Negative); Nitrite Negative (Negative); Protein, Urine (Dipstick) 20 mg/dL (Neg-Trace); RBC/HPF 0-3 HPF (0-3); Specific Gravity, Urine 1.013 (1.002-1.036); Squamous Epithelial 0-3 HPF (0-3); Urobilinogen Normal mg/dL (Less than 2)
[2021-05-14 18:12] LABS: Bacteria/HPF 1+ HPF (None Seen)
[2021-05-14 18:59] LABS: SARS-CoV-2 NAA Rapid Test DETECTED (NotDetected)
[2021-05-14] MEDS ORDERED: Guaifenesin DM 100-10/5 ML UDCUP PO PRN (20:07)
[2021-05-14] MEDS ORDERED: Calcium Carbonate 500 MG ChewTAB PO PRN (20:07)
[2021-05-14] MEDS ORDERED: Acetaminophen 325 MG TAB PO PRN (20:07)
[2021-05-14] MEDS ORDERED: HYDROcodone/Acetaminophen 5/325 mg Tablet PO PRN (20:07)
[2021-05-14] MEDS ORDERED: Bisacodyl 5 MG TAB PO PRN (20:07)
[2021-05-14] MEDS ORDERED: Senokot S 8.6-50 MG TAB PO PRN (20:07)
[2021-05-14] MEDS ORDERED: Ondansetron PF 4 MG/2 ML Vial IVP PRN (20:07)
[2021-05-14] MEDS ORDERED: Melatonin 3 MG TAB PO PRN (20:14)
[2021-05-14] MEDS ORDERED: Ascorbic Acid 500 mg Chewable Tablet PO SCH (21:45)
[2021-05-14] MEDS ORDERED: Dexamethasone 10 MG/ML VIAL SLOW IVP SCH (22:00)
[2021-05-14] MEDS ORDERED: Cholecalciferol (Vitamin D3) 400 UNITS TAB PO SCH (22:00)
[2021-05-14] MEDS ORDERED: Zinc Sulfate 220 MG CAP PO SCH (22:00)
[2021-05-14] MEDS: Famotidine/PF 20 mg/2ml Vial SLOW IVP SCH (22:08)
[2021-05-14] MEDS: Nicotine 14 MG PATCH TD SCH (22:11)
[2021-05-14 22:12] VITALS: BMI 20.7
[2021-05-14] MEDS: HYDROcodone/Acetaminophen 7.5/325 mg Tablet PO PRN (22:18)
[2021-05-15] MEDS: Vancomycin 1 GM in Premix Bag 1 BAG IVPB SCH ×3 (00:39→15:16)
[2021-05-15] MEDS ORDERED: Cefepime 2 GM in Sodium Chloride 0.9% 100 ML IVPB SCH (04:00)
[2021-05-15 06:48] LABS: #Lymphocytes 0.5 thou/uL (1.20-3.40); #Monocytes 0.1 thou/uL (0.11-0.59); #Neutrophils 5.5 thou/uL (1.40-6.50); %Basophils 0.2 % (0.0-1.0); %Eosinophils 0.2 % (0.0-10.0); %Monocytes 1.7 % (0.0-10.0)
[2021-05-15 06:49] LABS: Hemoglobin 10.6 g/dL (14.0-18.0); Mean Corpuscular HGB CONC 34.6 g/dL (32.0-36.0); Mean Corpuscular Hemoglobin 26.6 pg (27.0-31.0); Mean Corpuscular Volume 76.8 fL (78.0-98.0); Mean Platelet Volume 12.4 fL (7.4-10.4); Platelet Count 142 thou/uL (130-400); RBC Distribution Width 14.1 % (11.5-14.5); Red Blood Cell (RBC) Count 3.98 mill/uL (4.70-6.10); White Blood Cell (WBC) Count 6.1 thou/uL (4.8-10.8)
[2021-05-15 07:35] LABS: Hypochromia SLIGHT = 6-15 cells (100X) (0-5/hpf); Large Platelets SLIGHT; MDiff Complete? YES; Microcytosis SLIGHT = 6-15 cells (100X) (0-5/hpf); Platelet Morphology Comment Appears Adequate; Polychromasia SLIGHT = 2-3 cells (100X) (0-2/hpf); Target Cells SLIGHT = 2-5 cells (100X) (0-1/hpf)
[2021-05-15] MEDS: Ascorbic Acid 500 mg Chewable Tablet PO SCH (08:06)
[2021-05-15] MEDS: Famotidine/PF 20 mg/2ml Vial SLOW IVP SCH ×2 (08:06→20:45)
[2021-05-15] MEDS: Zinc Sulfate 220 MG CAP PO SCH (08:07)
[2021-05-15] MEDS: Cholecalciferol (Vitamin D3) 400 UNITS TAB PO SCH (08:07)
[2021-05-15] MEDS: HYDROcodone/Acetaminophen 7.5/325 mg Tablet PO PRN (08:07)
[2021-05-15] MEDS ORDERED: FLU VACC QS2021-22(6MOS UP)/PF 60 MCG/0.5 ML SYRINGE IM ONE (09:00)
[2021-05-15] MEDS ORDERED: Prevnar 13-Val Conj/PF 0.5 ML SYRINGE IM ONE (09:00)
[2021-05-15] MEDS ORDERED: Lorazepam 2 MG/ML VIAL SLOW IVP PRN (11:12)
[2021-05-15] MEDS: Lorazepam 0.5 MG TAB PO PRN (11:55)
[2021-05-15 21:01] LABS: Chlam.trachomatis by PCR,Urine Not Detected (NotDetected)
[2021-05-15] MEDS: Nicotine 14 MG PATCH TD SCH (21:31)
[2021-05-16] MEDS: Zinc Sulfate 220 MG CAP PO SCH (08:00)
[2021-05-16] MEDS: Famotidine/PF 20 mg/2ml Vial SLOW IVP SCH (08:00)
[2021-05-16] MEDS: Cholecalciferol (Vitamin D3) 400 UNITS TAB PO SCH (08:00)
[2021-05-16] MEDS: Ascorbic Acid 500 mg Chewable Tablet PO SCH (08:00)
[2021-05-16] MEDS: Lorazepam 0.5 MG TAB PO PRN (08:00)
[2021-05-16 08:08] VITALS: BP 129/89; TEMP 97.3
[2021-05-16 15:14] LABS: %CD4 (Helper/Inducer) 2.5 % (30.8-58.5); Absolute CD4 20 /uL (359-1519); Lymphocytes/Gated Cell Count 0.8 x10E3/uL (0.7-3.1); Total Lymphocyte 13 % (Not Estab.); WBC Total Count 6.3 x10E3/uL (3.4-10.8)
== END 2021-05-16 10:48 | disposition home or self-care (01) | DRG 975 ==
LOC: ERS 14:44 → T4-A 18:50
PROVIDERS: ADMIT Internal Medicine; ATTEND Internal Medicine
PROC: 8E0ZXY6 Isolation (ICD-10-PCS; principal; 2021-05-14)
PROC: 3E0333Z Introduction of Anti-inflammatory into Peripheral Vein, Percutaneous Approach (ICD-10-PCS; 2021-05-14)
DX: U07.1 COVID-19 (principal); B20 Human immunodeficiency virus [HIV] disease; N30.00 Acute cystitis without hematuria; M25.461 Effusion, right knee; F32.A Depression, unspecified; F17.210 Nicotine dependence, cigarettes, uncomplicated; Z91.14 Patient's other noncompliance with medication regimen; Z86.19 Personal history of other infectious and parasitic diseases
CPT/HCPCS: 0240U; 20610; 36415; 71045; 80053; 81003; 81015; 82728; 83605; 85025; 85048; 85379; 86140; 86361; 87040; 87086; 87491; 87591; 93005; 96365; 96375; J0692; J1100; J2250; J2270; J3370; J3490; S0028

== ENCOUNTER 2021-07-08 14:19 | Emergency (ER) | payer OTHER | END 2021-07-08 15:48 | LOC: ERS 14:19 | DX: M79.602 Pain in left arm (principal); F17.210 Nicotine dependence, cigarettes, uncomplicated | CPT/HCPCS: 99283 ==